=== PATIENT | female | born 1985 | race Caucasian/White ===

== ENCOUNTER 2024-10-09 14:30 | Outpatient (CLI) | payer BC, SELFPAY | END 2024-10-09 14:31 | disposition home or self-care (01) | PROVIDERS: PCP Family Medicine; Visit Provider Family Medicine | DX: F41.1 Generalized anxiety disorder (principal); R53.83 Other fatigue; Z13.6 Encounter for screening for cardiovascular disorders | CPT/HCPCS: 80053; 80061; 84443 ==

== ENCOUNTER 2024-10-25 07:57 | Outpatient (CLI) | payer BC, SELFPAY ==
[2024-10-27 02:07] LABS: HPV Source Cervical/Vag
== END 2024-10-25 07:58 | disposition home or self-care (01) ==
PROVIDERS: PCP Family Medicine; Visit Provider Family Medicine
DX: Z12.4 Encounter for screening for malignant neoplasm of cervix (principal); Z11.51 Encounter for screening for human papillomavirus (HPV)
CPT/HCPCS: 87624; 87625; 88141; 88142